=== PATIENT | female | born 1990 | race Caucasian/White ===

== ENCOUNTER 2016-06-28 11:16 | Emergency (ER) | payer OTHER ==
[2016-06-28 11:29] VITALS: BP 122/62; PULSE 62; RESP 18; TEMP 98; O2SAT 96
[2016-06-28] MEDS ORDERED: SIMETHICONE 80 MG TAB CHEW PO ONE (12:00)
--- NOTE | 2016-06-28 12:04 | UCPHY ---
[id number] 12:00 HPI/ROS: HPI: 26-year-old female presents to urgent care with chief concern cold symptoms and abdominal bloating. Reports onset of cold symptoms 3 days ago associated with rhinorrhea, mild nonproductive cough and mild sore throat. Reports onset of abdominal bloating last night at 2:00 a.m.. Reports a gastroenteritis 1.5 weeks ago that lasted for 3-4 days and resolved. She denies fever, chills, dysphagia, shortness of breath, chest pain, abdominal pain , nausea, vomiting. No urinary symptoms. Had diarrhea during acute gastroenteritis however those symptoms have resolved. No history of constipation. No recent travel or antibiotic use. ROS:10 point review of systems is negative other than as stated in HPI (Jumana Paul) Social History: [employer] student (Jumana Paul) Physical Exam: Vital signs stable, reviewed by me General: Awake, alert, calm, cooperative. No acute distress. Head: Normalocephalic. Atraumatic. EENT: PERRLA. EOMI. No pallor or injection. Anicteric. No nystagmus. No injection. TMs intact bilaterally with serous fluid present, obscured landmarks , minimal bulging bilaterally. Nasal congestion present. Mildly erythematous nasal turbinates. Oropharynx without significant erythema or exudates. Uvula midline. Tonsils 2+ bilaterally. Neck: Supple, nontender. No lymphadenopathy. Full range of motion. No meningismus. Respiratory: Breathing unlabored. Breath sounds equal bilaterally and clear to auscultation. No adventitious sounds. CV: Chest nontender, atraumatic. Heart rate regular. No murmur, distal pulses 2+ bilaterally. Brisk cap refill all extremities. GI: Abdomen soft, mild bloating, nontender. No organomegaly. Bowel sounds mildly hyperactive and positive x4 quadrants. Neuro: Alert. Oriented x 3. Speech clear. Nonfocal cranial nerves throughout. Sensation intact all extremities. Skin: Skin warm, dry, intact. No rashes, abrasions, or lacerations. Skin turgor normal. Extremities: Full range of motion in all 4 extremities. Strength 5+ all extremities. (Jumana Paul) Constitutional: Initial Vital Signs Temperature (C) 36.6 C 06/28/16 11:26 Heart Rate 62 06/28/16 11:26 Respiratory Rate 18 06/28/16 11:26 Blood Pressure 122/62 H 06/28/16 11:26 O2 Sat (%) 96 06/28/16 11:26 O2 Delivery Mode Room Air Allergies/Adverse Reactions: No Known Allergies Allergy (Unverified 06/28/16 11:25) Home Medications: Medication Instructions Recorded NK [No Known Home Meds] 06/28/16 Medical Decision Making ED Course/Re-evaluation: Nontoxic afebrile 26-year-old female presents to urgent care with cold symptoms and abdominal bloating. She recovered from gastroenteritis a week ago. She reports ongoing bloating and gas. She has no abdominal pain. (Jumana Paul) Urgent Care PA supervision Physician documentation: The patient was evaluated and managed by the physician surgeon's assistant. My co- signature indicates that I have reviewed this chart and I agree with the findings and plan of care as documented. I am the secondary supervising physician. (Senthil Canseco) Differential Diagnosis: Differential includes but is not limited to viral URI, abdominal gas and bloating, gastroenteritis, constipation (Jumana Paul) - Data Points Medications Given: Discontinued Medications Simethicone (Mylicon) 80 mg PO EDNOW ONE Stop: 06/28/16 12:01 Last Admin: 06/28/16 17:59 Dose: 80 mg Departure - Departure Disposition: Home, Routine, Self-Care Clinical Impression: Upper respiratory infection, Bloating symptom Instructions: Upper Respiratory Infection (ED), Gas and Bloating (ED) Additional Instructions: Plan: Cold symptoms: Drink plenty of fluids. Rest. You may use over the counter cough and cold medicine for symptom relief. You may use Tylenol or Ibuprofen for fever and pain control. Use saline spray or saline irrigation to each nostril twice daily-morning and evening. For sore throat, gargle with warm salt water three times daily. Return to Urgent Care or ER if you develop chest pain, difficulty breathing, or difficulty swallowing. Return here promptly for worsening symptoms such as facial/tooth pain, chest pain, shortness of breath, unremitting fever, nausea, vomiting, difficulty swallowing. Bloating: Use [id number] Gas-X as needed Take an [id number] probiotic and/or eat yogurt while taking this antibiotic. ([place] or Udo formula) Drink plenty of fluids Follow up at [facility] if symptoms not improved within the next 5 days Referrals: [place],. [Primary Care Provider] - As per Instructions [facility] [Outside] - As per Instructions - PQRS PQRS Measurement: Not applicable (Jumana Paul)
== END 2016-06-28 12:14 | disposition home or self-care (01) ==
LOC: CED 11:16
DX: J06.9 Acute upper respiratory infection, unspecified (principal); R14.0 Abdominal distension (gaseous)
CPT/HCPCS: G0463-PO